=== PATIENT | male | born 1985 | race Two or more races ===

== ENCOUNTER 2020-09-20 13:27 | Emergency (ER) | payer BC, OTHER ==
[~2020-09-20] VITALS: Ht 177.8 cm; Wt 90.7 kg
--- NOTE | 2020-09-20 13:40 | NUR ---
BIBRA39 FOR FEVER & WEAKNESS X 8 DAYS. COVID +. PT AAOX4, VSS. RR EVEN & UNLABORED. DENIES CP, SOB, DIZZINESS, N/V/D AT THIS TIME. AWAITING EVAL BY MARY. WILL CONT TO MONITOR.
[2020-09-20] MEDS ORDERED: IV NS 0.9% 1,000 ML IV ONE (14:30)
[2020-09-20] MEDS ORDERED: ACETAMINOPHEN ES 500 MG TABLET PO ONE (14:30)
[2020-09-20] MEDS ORDERED: ONDANSETRON HCL/PF 4 MG/2 ML VIAL IVP ONE (14:30)
[2020-09-20] MEDS ORDERED: ACETAMINOPHEN ES 500 MG TABLET ONE (14:37)
[2020-09-20] MEDS ORDERED: ONDANSETRON HCL/PF 4 MG/2 ML VIAL ONE (14:37)
[2020-09-20 14:41] LABS: BASOPHILS % (AUTO) 0.4 % (0.0-2.0); HEMATOCRIT 44 % (39-51); HEMOGLOBIN 14.9 g/dL (13.5-17.5); LYMPHOCYTES # (AUTO) 0.9 /CMM (0.8-4.8); LYMPHOCYTES % (AUTO) 27.3 % (20.0-44.0); MEAN CORPUSCULAR HGB CONC 34 g/dl (31.0-36.0); MEAN CORPUSCULAR VOLUME 88 fL (80-96); MONOCYTES # (AUTO) 0.3 /CMM (0.1-1.30); MONOCYTES % (AUTO) 10.8 % (2.0-12.0); NEUTROPHILS % (AUTO) 61.5 % (43.0-81.0); PLATELET COUNT (AUTO) 154 /CMM (150-450); RED BLOOD CELL COUNT(AUTO) 5.01 MIL/uL (4.5-6.0); WHITE BLOOD COUNT (AUTO) 3.2 K/uL (4.3-11.0)
--- NOTE | 2020-09-20 14:56 | NUR ---
MEDICATED PER ERMD ORDER, PT JAVON WELL.
[2020-09-20 15:07] LABS: ALANINE AMINOTRANSFERASE 34 U/L (12-78); ALBUMIN 3.6 g/dL (3.4-5.0); ALKALINE PHOSPHATASE 64 U/L (46-116); ASPARTATE AMINOTRANSFERASE 35 U/L (15-37); BILIRUBIN,TOTAL 0.3 mg/dL (0.2-1.0); CALCIUM, SERUM 8.8 mg/dL (8.5-10.1); CARBON DIOXIDE 30 mmol/L (21-32); CHLORIDE 100 mmol/L (98-107); CREATININE 1.1 mg/dL (0.6-1.3); GLUCOSE 104 mg/dL (74-106); POTASSIUM 4.4 mmol/L (3.5-5.1); SODIUM SERUM 137 mmol/L (136-145); TOTAL PROTEIN, SERUM 7.6 g/dL (6.4-8.2); UREA NITROGEN, BLOOD 11 mg/dL (7-18)
[2020-09-20 16:12] VITALS: BP 127/79
--- NOTE | 2020-09-20 16:12 | NUR ---
Patient discharged to home in stable condition. Written and verbal after care instructions given. Patient verbalizes understanding of instruction. IV removed. Catheter intact and site benign. Pressure and 4x4 applied to site. No bleeding noted.
== END 2020-09-20 16:13 | disposition home or self-care (01) ==
LOC: ER 13:28
DX: U07.1 COVID-19 (principal); R91.8 Other nonspecific abnormal finding of lung field
CPT/HCPCS: 36415; 71045; 80053; 84484; 85025; 93005; 96361; 96374; 99285; J2405; J7030

== ENCOUNTER 2020-09-23 07:05 | Emergency (ER) | payer BC ==
[~2020-09-23] VITALS: Ht 167.6 cm; Wt 90.7 kg
--- NOTE | 2020-09-23 07:05 | NUR ---
PT BIB SELF C/O COUGH,BODY ACHES AND FEVER. PT IS AAOX4, NOT IN RESPIRATORY DISTRESS, PLACED IN ER ROOM 7, HOOKED TO FINISHER HOT STRIP, KEPT RESTED AND COMFORTABLE.
--- NOTE | 2020-09-23 07:20 | NUR ---
SEEN AND EXAMINED BY .
[2020-09-23] MEDS ORDERED: ONDANSETRON HCL/PF 4 MG/2 ML VIAL ONE (07:29)
[2020-09-23] MEDS ORDERED: KETOROLAC TROMETHAMINE 15 MG/ML VIAL ONE (07:29)
[2020-09-23] MEDS ORDERED: IV NS 0.9% 500 ML BAG IV ONE (07:30)
[2020-09-23] MEDS ORDERED: KETOROLAC TROMETHAMINE INJ 30 MG/ML VIAL IV ONE (07:30)
[2020-09-23] MEDS ORDERED: ONDANSETRON HCL/PF 4 MG/2 ML VIAL IVP ONE (07:30)
--- NOTE | 2020-09-23 07:32 | NUR ---
IV LINE ESTABLISHED BLOOD DRAWN AND SENT TO LAB.
[2020-09-23 07:42] LABS: BASOPHILS % (AUTO) 0.5 % (0.0-2.0); EOSINOPHILS % (AUTO) 0.1 % (0.0-6.0); HEMATOCRIT 42 % (39-51); HEMOGLOBIN 14.1 g/dL (13.5-17.5); LYMPHOCYTES # (AUTO) 0.7 /CMM (0.8-4.8); LYMPHOCYTES % (AUTO) 12.2 % (20.0-44.0); MEAN CORPUSCULAR HGB CONC 34 g/dl (31.0-36.0); MEAN CORPUSCULAR VOLUME 88 fL (80-96); MONOCYTES # (AUTO) 0.2 /CMM (0.1-1.30); MONOCYTES % (AUTO) 4.1 % (2.0-12.0); NEUTROPHILS % (AUTO) 83.1 % (43.0-81.0); PLATELET COUNT (AUTO) 219 /CMM (150-450); RED BLOOD CELL COUNT(AUTO) 4.76 MIL/uL (4.5-6.0); WHITE BLOOD COUNT (AUTO) 6.1 K/uL (4.3-11.0)
[2020-09-23 07:55] LABS: CALCIUM, SERUM 8.3 mg/dL (8.5-10.1); CREATININE 1.1 mg/dL (0.6-1.3); POTASSIUM 3.8 mmol/L (3.5-5.1)
[2020-09-23 08:01] LABS: ALBUMIN 3.1 g/dL (3.4-5.0); BILIRUBIN,TOTAL 0.4 mg/dL (0.2-1.0); TOTAL PROTEIN, SERUM 7.4 g/dL (6.4-8.2)
--- NOTE | 2020-09-23 08:07 | NUR ---
lab called. negative covid.
[2020-09-23] MEDS ORDERED: DEXAMETHASONE SOD PHOSPHATE 10 MG/ML VIAL ONE (08:58)
[2020-09-23] MEDS ORDERED: GUAI100S11 PO (08:58)
[2020-09-23] MEDS ORDERED: CEFTRIAXONE 1GM BAG (ER ONLY) 50 ML IV ONE (08:58)
[2020-09-23] MEDS ORDERED: ACET-868 PO (08:58)
[2020-09-23] MEDS ORDERED: DEXAMETHASONE SOD PHOSPHATE 10 MG/ML VIAL IV ONE (09:00)
[2020-09-23] MEDS ORDERED: AZITHROMYCIN 500 MG in IV D5W 250 ML IV ONE (09:00)
[2020-09-23] MEDS ORDERED: CEFTRIAXONE 1GM BAG (ER ONLY) 1 GM/50 ML PIGGYBACK IV ONE (09:00)
--- NOTE | 2020-09-23 09:01 | NUR ---
COVID PCR SPECIMEN OBTAINED AND SENT TO LAB.
--- NOTE | 2020-09-23 09:33 | NUR ---
CALL FROM [employer], CLINICALS GIVEN, SHE WILL PRESENT TO [employer] AND GIVE US A CALL BACK
--- NOTE | 2020-09-23 09:42 | NUR ---
spoke to bret from [facility] to fax clinicals to [phone]
--- NOTE | 2020-09-23 09:47 | NUR ---
faxed clinicals to bret [facility]
--- NOTE | 2020-09-23 14:03 | NUR ---
ACCEPTED TO [facility] ROOM 302B. GIVE REPORT TO SHERWIN [phone]. CM WILL CALL WITH ETA FOR TRANSPORTATION
--- NOTE | 2020-09-23 14:11 | NUR ---
called [facility] and report given to Poli BRAND for sakshi.
--- NOTE | 2020-09-23 14:14 | NUR ---
pt provided with meal
[2020-09-23 14:59] VITALS: BP 108/68
--- NOTE | 2020-09-23 15:24 | NUR ---
Patient left in stable condition via gurney accompaied by 2 emt in no distress going to [facility]. Denies any pain at this time.
--- NOTE | 2020-09-23 23:59 | NUR ---
SPOKE WITH SUNDAY ALVARADO FROM [facility] AND INFORMED COVID PCR RESULTS POSITIVE. VERBALIZED UNDERSTANDING. WILL FAX RESULTS PER REQUEST
== END 2020-09-23 15:23 | disposition short-term general hospital (02) ==
LOC: ER 07:08
DX: U07.1 COVID-19 (principal); J12.89 Other viral pneumonia; J96.01 Acute respiratory failure with hypoxia; R94.31 Abnormal electrocardiogram [ECG] [EKG]
CPT/HCPCS: 36415; 71045; 80053; 85025; 87081; 87426; 93005; 96361; 96365; 96375; 99291; C9803 ×2; J0456; J0696; J1100; J1885; J2405; J7040; U0003; J7060